=== PATIENT | male | born 1950 | race African-American/Black ===

== ENCOUNTER 2025-03-15 13:07 | Inpatient (IN) | payer MEDICARE ==
[~2025-03-15] VITALS: Ht 165.1 cm; Wt 51.3 kg
[2025-03-15 13:38] LABS: PLATELET COUNT (AUTO) 256 K/uL (150-450); RED BLOOD CELL COUNT(AUTO) 3.91 MIL/uL (4.5-6.0); RED CELL DISTRIBUTION WIDTH 15.3 % (11.5-15.0); WHITE BLOOD COUNT (AUTO) 8.1 K/uL (4.3-11.0)
[2025-03-15 13:51] LABS: INR 1.26 (0.91-1.10)
[2025-03-15 13:59] LABS: CALCIUM, SERUM 8.5 mg/dL (8.5-10.1); CREATININE 0.9 mg/dL (0.6-1.3); SODIUM SERUM 143 mmol/L (136-145); UREA NITROGEN, BLOOD 19 mg/dL (7-18)
[2025-03-15] MEDS ORDERED: MORPHINE SULFATE INJ 2 MG/ML DISP.SYRIN ONE (14:04)
[2025-03-15] MEDS ORDERED: ONDANSETRON HCL/PF 4 MG/2 ML VIAL ONE (14:04)
[2025-03-15] MEDS ORDERED: IBUP-1955 PO (14:18)
[2025-03-15] MEDS ORDERED: BISA10SU11 RC (14:18)
[2025-03-15] MEDS ORDERED: FOLI0.4T6 PO (14:18)
[2025-03-15] MEDS ORDERED: MAGN400O6 PO (14:18)
[2025-03-15] MEDS ORDERED: TAMS-12 PO (14:18)
[2025-03-15] MEDS ORDERED: SENN8.6T19 PO (14:18)
[2025-03-15] MEDS ORDERED: HYDR-3972 PO (14:18)
[2025-03-15] MEDS ORDERED: GABA600T12 PO (14:18)
[2025-03-15] MEDS ORDERED: BACL20TA PO (14:18)
[2025-03-15] MEDS ORDERED: DIVA-76 PO (14:18)
[2025-03-15] MEDS ORDERED: NA P133E RC (14:18)
[2025-03-15] MEDS ORDERED: GABA300C PO (14:18)
[2025-03-15] MEDS ORDERED: APIX5TAB PO (14:18)
[2025-03-15] MEDS ORDERED: OLAN5TAB3 PO (14:18)
[2025-03-15] MEDS ORDERED: AMIN30LI2 PO (14:18)
[2025-03-15] MEDS ORDERED: NALO4SPR NS (14:18)
[2025-03-15] MEDS ORDERED: ACET325T53 PO (14:18)
[2025-03-15] MEDS ORDERED: FERR325T24 PO (14:18)
[2025-03-15] MEDS ORDERED: ASCO-352 PO (14:18)
[2025-03-15] MEDS: IV NS 0.9% 1,000 ML BAG IV ONE (14:25)
[2025-03-15] MEDS: MORPHINE SULFATE INJ 2 MG/ML DISP.SYRIN IV ONE (14:25)
[2025-03-15] MEDS: ONDANSETRON HCL/PF 4 MG/2 ML VIAL IV ONE (14:25)
[2025-03-15] MEDS ORDERED: ONDANSETRON HCL/PF 4 MG/2 ML VIAL IVP PRN (14:30)
[2025-03-15] MEDS ORDERED: ACETAMINOPHEN 325 MG TABLET PO PRN (14:30)
[2025-03-15] MEDS ORDERED: MAG HYDROX/AL HYDROX/SIMETH 30 ML UDC PO PRN (14:30)
[2025-03-15] MEDS ORDERED: Z GUARD REMEDY 4 OZ OINT TP PRN (14:30)
[2025-03-15] MEDS ORDERED: MAGNESIUM HYDROXIDE 30 ML UDC PO PRN (14:30)
[2025-03-15] MEDS ORDERED: ENOXAPARIN SODIUM 40 MG/0.4 ML DISP.SYRIN SQ ONE ×2 (16:48→18:00)
[2025-03-15] MEDS: ENOXAPARIN SODIUM 40 MG/0.4 ML DISP.SYRIN SQ SCH (16:49)
[2025-03-15 20:00] VITALS: BP 118/84; TEMP 97.9; O2SAT 97
[2025-03-15] MEDS: IV NS 0.9% 1,000 ML IV PRN (22:02)
[2025-03-15] MEDS ORDERED: HYDR-4675 PO (23:50)
[2025-03-15] MEDS ORDERED: ASCO500C18 PO (23:50)
[2025-03-15] MEDS ORDERED: GABA-532 PO (23:50)
[2025-03-15] MEDS ORDERED: DIVA125C5 PO (23:50)
[2025-03-15] MEDS ORDERED: FERR-68 PO (23:50)
[2025-03-16] MEDS ORDERED: NA PHOS,M-B/NA PHOS,DI-BA 1 EA ENEMA RC PRN
[2025-03-16] MEDS ORDERED: MAGNESIUM HYDROXIDE 30 ML UDC PO PRN
[2025-03-16] MEDS ORDERED: BISACODYL SUPP (10 MG) 10 MG/SUPP.RECT SUPP.RECT RC PRN
[2025-03-16] MEDS: DIVALPROEX SODIUM 125 MG CAP.SPRINK PO SCH (04:53)
[2025-03-16 08:00] VITALS: BP 130/74; TEMP 98.4; O2SAT 99
[2025-03-16] MEDS: GABAPENTIN 300 MG CAPSULE PO SCH (08:19)
[2025-03-16] MEDS: OLANZAPINE 5 MG TABLET PO SCH (08:19)
[2025-03-16] MEDS: ASCORBIC ACID 500 MG TABLET PO SCH (08:19)
[2025-03-16] MEDS: SENNOSIDES 8.6 MG TABLET PO SCH (08:19)
[2025-03-16] MEDS: FERROUS SULFATE (325 MG) 325 MG/TAB TABLET PO SCH (08:19)
[2025-03-16] MEDS: FOLIC ACID 1 MG TABLET PO SCH (08:19)
[2025-03-16] MEDS: APIXABAN 5 MG TABLET PO SCH (08:22)
[2025-03-16] MEDS: PROSOURCE / PROSTAT (PYXIS) 30 ML UDC PO SCH (08:23)
[2025-03-16] MEDS ORDERED: FERROUS SULFATE (325 MG) 325 MG/TAB TABLET PO SCH (09:00)
[2025-03-16] MEDS ORDERED: DIVALPROEX SODIUM 250 MG TABLET.DR PO SCH (09:00)
[2025-03-16] MEDS: HYDROCODONE/APAP 5/325MG TABLET PO PRN (12:24)
[2025-03-16 20:00] VITALS: BP 120/80; TEMP 97.3; O2SAT 99
[2025-03-16] MEDS: TAMSULOSIN 0.4 MG CAP.SR.24H PO SCH (21:18)
[2025-03-17 08:00] VITALS: BP 120/76; TEMP 98.4; O2SAT 99
[2025-03-17] MEDS ORDERED: ENOXAPARIN SODIUM 40 MG/0.4 ML DISP.SYRIN SQ SCH (11:30)
[2025-03-17 16:00] VITALS: BP 123/82; TEMP 97.9; O2SAT 98
[2025-03-17 20:00] VITALS: BP 143/93; TEMP 98.1; O2SAT 100
[2025-03-17 23:05] VITALS: BP 143/93; TEMP 98.1; O2SAT 100
[2025-03-18 08:00] VITALS: BP 128/83; TEMP 98.4; O2SAT 97
[2025-03-18 11:22] VITALS: TEMP 98.4
[2025-03-18] MEDS: ACETAMINOPHEN 325 MG TABLET PO PRN (11:22)
== END 2025-03-18 13:00 | DRG 543 ==
LOC: ER 13:47 → MED 18:37
PROVIDERS: ADMIT Internal Medicine; ATTEND Internal Medicine
DX: M84.452A Pathological fracture, left femur, initial encounter for fracture (principal); D68.59 Other primary thrombophilia; Z79.01 Long term (current) use of anticoagulants; F01.50 Vascular dementia, unspecified severity, without behavioral disturbance, psychotic disturbance, mood disturbance, and anxiety; I69.398 Other sequelae of cerebral infarction; I10 Essential (primary) hypertension; I48.91 Unspecified atrial fibrillation; N40.0 Benign prostatic hyperplasia without lower urinary tract symptoms; M16.12 Unilateral primary osteoarthritis, left hip; M62.40 Contracture of muscle, unspecified site; Z74.01 Bed confinement status; R26.9 Unspecified abnormalities of gait and mobility; Z79.899 Other long term (current) drug therapy; Z87.891 Personal history of nicotine dependence
CPT/HCPCS: 36415; 71045-TC; 80048-TC; 85025-TC; 85730-TC; 87081-TC; 93307-TC; G0378; J1650; J2270; J2405; J7030; J7040